=== PATIENT | female | born 1985 | race African-American/Black ===

== ENCOUNTER 2018-10-23 17:04 | Emergency (ER) | payer OTHER ==
[~2018-10-23] VITALS: Ht 157.5 cm; Wt 54.5 kg
[2018-10-23] MEDS ORDERED: ACET500T15 PO (17:16)
[2018-10-23] MEDS ORDERED: NS 1,000 ML IV ONE (17:30)
[2018-10-23] MEDS ORDERED: KETOROLAC 30 MG/ML VIAL (J1885) IV ONE (17:30)
[2018-10-23] MEDS ORDERED: ONDANSETRON 4MG/2ML VIAL (J2405) IV ONE (17:30)
[2018-10-23 17:58] LABS: BASO % 0.2 % (0.0-1.0); EOS # 0.1 10^3/uL (0.0-0.50); EOS % 0.5 % (0.0-3.0); HEMATOCRIT 31.4 % (36.0-47.0); HEMOGLOBIN 9.5 g/dl (12.0-15.5); LYMPH # 2.9 10^3/uL (1.5-4.5); LYMPH % 16.6 % (24.0-44.0); MEAN CORPUSCULAR HEMOGLOBIN 18.4 pg (27.0-33.0); MEAN CORPUSCULAR HGB CONC 30.3 g/dl (32.0-36.5); MONO # 1.8 10^3/uL (0.0-0.8); MONO % 10.3 % (0.0-5.0); NEUTROPHILS # 12.6 10^3/uL (1.8-7.7); NEUTROPHILS % 71.9 % (36.0-66.0); PLATELET COUNT, AUTOMATED 279 10^3/uL (150-450); RED BLOOD COUNT 5.15 10^6/uL (4.00-5.40); WHITE BLOOD COUNT 17.5 10^3/uL (4.0-10.0)
[2018-10-23] MEDS ORDERED: ACETAMINOPHEN 325 MG TAB PO ONE (18:00)
[2018-10-23 18:27] LABS: ALBUMIN 3.5 GM/DL (3.2-5.2); ALT/SGPT 13 U/L (12-78); BILIRUBIN,DIRECT < 0.1 MG/DL (0.0-0.2); BILIRUBIN,TOTAL 0.4 MG/DL (0.2-1.0); BLOOD UREA NITROGEN 13 MG/DL (7-18); CALCIUM LEVEL 8.8 MG/DL (8.5-10.1); CARBON DIOXIDE LEVEL 25 MEQ/L (21-32); CHLORIDE LEVEL 103 MEQ/L (98-107); CREATININE FOR GFR 0.93 MG/DL (0.55-1.30); GLOMERULAR FILTRATION RATE > 60.0 (>60); GLUCOSE, FASTING 90 MG/DL (70-100); LIPASE 91 U/L (73-393); POTASSIUM SERUM 3.7 MEQ/L (3.5-5.1); SODIUM LEVEL 137 MEQ/L (136-145); TOTAL PROTEIN 7.9 GM/DL (6.4-8.2)
[2018-10-23] MEDS ORDERED: ISOVUE-370 76% 100ML VIAL (Q9967) As Ordered ONE (18:34)
--- NOTE | 2018-10-23 18:58 | REP ---
Clinical: Acute lower abdominal pain. Technique: Axial contrast enhanced images from the lung bases to the pubic symphysis using 100 ml Isovue 370 intravenous contrast material with coronal and sagittal re-formations. Findings: Lung bases are clear. Visualized heart and pericardium normal. Liver, spleen, pancreas, gallbladder, bilateral adrenal glands and kidneys are normal. The enteric system is without obstruction or acute inflammatory process. Normal terminal ileum and appendix are identified in the right lower quadrant. Pelvis demonstrates normal bladder and age-appropriate uterus/adnexa. Small amount of free fluid in the posterior cul-de-sac is nonspecific and likely physiologic. No free air. No ascites. No adenopathy. Abdominal aorta and vasculature without aneurysm or dissection. Musculoskeletal structures are intact. Impression: No acute abdominopelvic pathology appreciated. Electronically Signed by Dominic Green MD 10/23/2018 06:49 P
[2018-10-23] MEDS ORDERED: CLINDAMYCIN 300 MG in APPROPRIATE DILUENT 1 EA IV ONE (19:15)
[2018-10-23] MEDS ORDERED: ZOFR4TAB14 PO (19:39)
[2018-10-23] MEDS ORDERED: CLEO300C2 PO (19:39)
[2018-10-23 19:52] VITALS: BP 112/76
== END 2018-10-23 19:58 | disposition home or self-care (01) ==
LOC: M ED 17:04
DX: L03.317 Cellulitis of buttock (principal); Z91.013 Allergy to seafood
CPT/HCPCS: 74177; 80048; 80076; 81001; 81025; 83605; 83690; 85025; 87040; 96361; 96365; 96375; 99284; J1885; J2405; Q9967

== ENCOUNTER 2019-04-04 10:12 | Inpatient (IN) | payer OTHER ==
[~2019-04-04] VITALS: Ht 157.5 cm; Wt 65.2 kg
[~2019-04-04 10:12] MED LIST: ACET500T15 PO; CLEO300C2 PO; FERR325T18; PRENTAB29; VITA500T; ZOFR4TAB14 PO
[2019-04-04] MEDS ORDERED: LR 1,000 ML IV SCH ×3 (10:21→13:00)
[2019-04-04] MEDS ORDERED: LACTATED RINGER'S 1000 ML IV STA (10:21)
[2019-04-04 10:33] VITALS: BP 126/75
[2019-04-04] MEDS ORDERED: OXYTOCIN 30 UNITS IN 0.9% NaCl 500ML IV BAG (J2590) As Ordered ONE (10:44)
[2019-04-04] MEDS ORDERED: BETAMETHASONE SOLUSPAN 6MG/ML INJ 5ML (J0702) IM SCH (10:45)
[2019-04-04] MEDS ORDERED: MAG Sulf (L&D) 4 GM/100 ML 4 GM in APPROPRIATE DILUENT 1 EA IV ONE (10:45)
[2019-04-04] MEDS ORDERED: PENICILLIN G POTASSIUM IV 5 MU in D5W MINI-BAG PLUS 100 ML IV ONE (10:45)
[2019-04-04] MEDS ORDERED: CALCIUM GLUCONATE 1,000 MG in D5W MINI-BAG PLUS 100 ML IV PRN (10:45)
[2019-04-04] MEDS ORDERED: BETAMETHASONE SOLUSPAN 6MG/ML INJ 5ML (J0702) As Ordered ONE (10:51)
[2019-04-04] MEDS ORDERED: MAG Sulf (OBGYN) 20GM/500ML 20,000 MG in APPROPRIATE DILUENT 1 EA IV SCH (10:57)
[2019-04-04 11:04] LABS: HEMATOCRIT 27.4 % (36.0-47.0); HEMOGLOBIN 8.2 g/dl (12.0-15.5); MEAN CORPUSCULAR HEMOGLOBIN 18.3 pg (27.0-33.0); MEAN CORPUSCULAR HGB CONC 29.9 g/dl (32.0-36.5); MEAN CORPUSCULAR VOLUME 61.3 fl (80.0-96.0); PLATELET COUNT, AUTOMATED 231 10^3/uL (150-450); RED BLOOD COUNT 4.47 10^6/uL (4.00-5.40); WHITE BLOOD COUNT 13.3 10^3/uL (4.0-10.0)
[2019-04-04] MEDS ORDERED: MIDAZOLAM INJ 2 MG/2 ML VIAL (J2250) As Ordered ONE (11:10)
[2019-04-04] MEDS ORDERED: fentaNYL 100 MCG/2 ML INJECTION (J3010) As Ordered ONE ×2 (11:17→11:35)
--- NOTE | 2019-04-04 11:24 | NUR ---
[facility] L&D Intrapartum progress note: Late entry for: 1026: Called to bedside as patient arrived from home with uterine ctx q2-3min; crying/breathing through ctx verbalizing a strong urge to push. EGA 23+5 weeks via L/9+5 week US.H/o PTD at unknown EGA- patient unable to recall gestational age; but reports her son is alive an well at present. On arrival to L&D Dr. Bain was notified and requested to come to the bedside for immediate assessment/consult. Dr. Altman was also notified of high suspicion for imminent PTD. No LOF. Scant bloody discharge. Pt reports FM earlier this am. O: A&Ox3; coping appropriately VSS; AF; maternal HR 80-90's. ABD: strong ctx to palp; non-relaxed uterine resting tone to palp SCE: BBOW FHR: 140-150; moderate variability; intermittent assessment due to maternal movement in bed. No audible decelerations. 1041: Dr Altman present at bedside w/ NICU nursing team. 1043: SROM; large amount of clear amniotic fluid; followed by moderate amount of vaginal bleeding. Called Dr. Bain and requested his assessment and consultation. TAUS brought to bs; cephalic vtx noted with + FM. FHR 140-150, intermittent assessment; no audible decelerations. SCE: 3cm/50%/unable to assess for presenting part/OOP. Reported assessment findings to Dr. Bain. Orders placed in anticipation of PTD and potential need for blood transfusion. 1050: Dr. Bain present at bs for assessment; tx care to him at this time. Report given on assessment findings.
[2019-04-04] MEDS ORDERED: OXYTOCIN INJ 10 UNITS/ML VIAL (J2590) As Ordered ONE (11:35)
[2019-04-04] MEDS ORDERED: PROPOFOL 200 MG/20 ML VIAL As Ordered ONE (11:35)
[2019-04-04] MEDS ORDERED: SUCCINYLCHOLINE 100 MG/5 ML SYRINGE (J0330) As Ordered ONE ×2 (11:36→12:30)
[2019-04-04] MEDS ORDERED: CALCIUM CHLORIDE 10% 1 GM/10 ML SYR As Ordered ONE (11:36)
[2019-04-04] MEDS ORDERED: ePHEDrine SULFATE 25 MG/5 ML(5MG/ML) SYRINGE As Ordered ONE (11:44)
--- NOTE | 2019-04-04 12:43 | REP ---
KUB, ONE VIEW: HISTORY: Stat . A small amount of air is present in small and large intestine. There are no air fluid levels or dilated loops of intestine. There is a possible small amount of free air present in the pelvis. There is no radiopaque foreign body. IMPRESSION: 1. Nonspecific bowel gas pattern. 2. There is a possible small amount of free air in the pelvis. Electronically Signed by Juan M Hansen MD 04/04/2019 01:21 P
[2019-04-04] MEDS ORDERED: OXYTOCIN DRIP 30 UNITS in APPROPRIATE DILUENT 1 EA IV SCH (12:51)
[2019-04-04] MEDS ORDERED: ceFAZolin 1GM INJ (J0690 PER 500MG) As Ordered ONE (12:53)
[2019-04-04] MEDS ORDERED: ONDANSETRON 4MG/2ML VIAL (J2405) IV PRN (13:00)
[2019-04-04] MEDS ORDERED: fentaNYL 100 MCG/2 ML INJECTION (J3010) IV PRN (13:00)
[2019-04-04] MEDS ORDERED: ACETAMINOPHEN 500 MG TAB PO PRN (13:00)
[2019-04-04] MEDS ORDERED: PERCOCET 5MG/325MG TAB PO PRN ×2 (13:00)
[2019-04-04] MEDS ORDERED: RHOGAM 300 MCG (1500 IU) INJ (J2790) IM SCH (13:00)
[2019-04-04] MEDS ORDERED: METHYLERGONOVINE MALEATE 0.2 MG/ML VIAL (J2210) IM PRN (13:00)
[2019-04-04] MEDS ORDERED: HYDROMORPHONE HCL 0.5 MG/ 0.5 ML SYRINGE (J1170 PER 1) IV PRN (13:00)
[2019-04-04] MEDS ORDERED: ANUSOL HC CREAM 30GM TOP PRN (13:00)
[2019-04-04] MEDS ORDERED: MOM 30ML SUSPENSION UDC PO PRN (13:00)
[2019-04-04] MEDS ORDERED: MEASLES,MUMPS,RUBELLA VACCINE INJ (MMR-II) (90707) SC SCH (13:00)
[2019-04-04] MEDS ORDERED: DOCUSATE SODIUM 100 MG CAP PO PRN (13:00)
[2019-04-04] MEDS ORDERED: IBUPROFEN 800 MG TAB PO PRN (13:00)
[2019-04-04] MEDS ORDERED: PERCOCET 5MG/325MG TAB As Ordered ONE (13:02)
[2019-04-04] MEDS ORDERED: OXYTOCIN INJ 10 UNITS/ML VIAL (J2590) IV ONE (13:45)
[2019-04-04 14:00] VITALS: BP 129/68
[2019-04-04] MEDS ORDERED: PENICILLIN G POTASSIUM IV 2.5 MU in APPROPRIATE DILUENT 1 EA IV SCH (14:45)
[2019-04-04 15:00] VITALS: BP 116/64
[2019-04-04] MEDS: PERCOCET 5MG/325MG TAB PO PRN ×2 (15:22→23:02)
[2019-04-04 16:00] VITALS: BP 118/58
[2019-04-04 18:00] VITALS: BP 113/55
[2019-04-04] MEDS: KETOROLAC 30 MG/ML VIAL (J1885) IV SCH (18:54)
[2019-04-04 20:08] LABS: HEMATOCRIT 15.1 % (36.0-47.0); MEAN CORPUSCULAR HEMOGLOBIN 18.5 pg (27.0-33.0); MEAN CORPUSCULAR HGB CONC 30.5 g/dl (32.0-36.5); MEAN CORPUSCULAR VOLUME 60.9 fl (80.0-96.0); PLATELET COUNT, AUTOMATED 175 10^3/uL (150-450); RED BLOOD COUNT 2.48 10^6/uL (4.00-5.40); WHITE BLOOD COUNT 22.4 10^3/uL (4.0-10.0)
[2019-04-04 20:10] LABS: HEMOGLOBIN 4.6 g/dl (12.0-15.5)
--- NOTE | 2019-04-04 22:32 | IPN ---
DATE: 04/04/2019 I was called by the nurse telephone coin box collector while being in the OR. I immediately came upstairs to labor and delivery finding a 33-year-old 2, para 1 who is in active labor at 23 and 5 weeks of gestation with a massive abruptio placenta. The bed was filled with blood, which was clotting, approximately 1100 mL. Her LMP was October 20, 2018. Her EDC by early ultrasound at 9 weeks 5 days was July 27, 2019. The patient has a past history of delivery, delivered a live at 28 weeks, 3 pounds 4 ounces male infant who is presently 13 years of age and apparently did not require NICU involvement. Her history otherwise is unremarkable. She is sickle cell trait. Partner was also negative. She did have a consult at [facility] which reviewed her history and gave a similar history at 2004 at 25-28 weeks of delivery in [place] and she had an abruption there, labor, after a fall and delivered. Infant was 1474 grams which is again 3 pounds 4 ounces which is really not consistent with 25 weeks, however, the baby turned out to be fine. The patient with labor is usually involved with 70-hydroxyprogesterone, but if it was an abruption then there is really no indication for Wild. The patient had declined Wild. Was counseled that if it is truly an abruption then it will not prevent another one. However, she was at risk for a potential recurrent abruption. When evaluating this patient in labor with a blood loss 1100 mL, we found that there was bradycardia, down to 70 beats per minute with no recovery. An IV was running full bore. Oxygen was placed. Blood pressure was 132/72, respirations 16, pulse 91 and temperature is 97.5. The assessment was made that this lady after digital examination was 3 cm with a foot down and a stat section was the only option. She was taken to the operating room. In the meantime neonatology was called, [facility] was called for transport. She was crossmatched for blood and in the operating room she had a general anesthetic with a crash and splash. We did require an x-ray to rule out any foreign bodies that were left in as we did not have a count. In summary, we have a 23 and 5 with a massive abruption, footling breech, bradycardia. We had limited discussion with her that she needed to have an emergency section, signed and witnessed the consent form.
[2019-04-05] MEDS: KETOROLAC 30 MG/ML VIAL (J1885) IV SCH ×2 (05:39)
[2019-04-05 05:57] VITALS: BP 111/68
--- NOTE | 2019-04-05 07:12 | RO ---
DATE OF PROCEDURE: 04/04/2019 PREOPERATIVE DIAGNOSES: Massive abruptio placenta. bradycardia. Prematurity. POSTOPERATIVE DIAGNOSES: Abruptio placenta. bradycardia. Prematurity. Footling breech. FINDINGS: footling breech, abruptio placenta, cord times one around the neck, bradycardia. OPERATION PERFORMED: Stat section, classical. SURGEON: Otto Bain MD SUPERINTENDENT ELECTRIC POWER: Juan M Hardin MD for extraction, retraction and exposure. ANESTHESIA: General. ESTIMATED BLOOD LOSS: At the operative site was 400 mL, predelivery was 1100 mL. OPERATION PROPOSED: Stat section. OPERATION PERFORMED: Stat section, classical. Under general anesthesia, quick prep was done and a crash section was performed after draping and Gaffney catheter in the bladder draining clear urine, and acetaminophen suppository 1300 mg per rectum. The Pfannenstiel incision was made through the skin, the fat, the fascia, opening the peritoneal cavity. The bladder was reflected well down anteriorly. Initially we thought the lower segment was thinned enough in order to get in; however, the upper segment contracted and trapped the fetus. We were able to extract the foot through the lower end, however, we have to do a classical type going vertically for about 2-3 inches and then by breech extraction, grabbing the 2 feet, delivered a live female infant weighing 570 grams, 1 pound 4 ounces, scores were 1, 3 and 5, at one, five and ten minutes respectively. Dr. Altman in attendance for resuscitation. The placenta itself basically fell out confirming the abruption, was sent to pathology under separate cover. The posterior wall initially we thought it was placenta, but it was endometrium which was quite anemic looking and on visualization of the back wall of the uterus we saw a large black and blue spot where the abruption probably occurred. There was no actual hole in the area, but it was significantly large enough to encompass the placenta. The placenta contracted well down under Pitocin. We evaluated the lower segment at the bladder area and we were able to close the classical part of the section with #0 Vicryl on an atraumatic needle using figure-of-8 and good hemostasis was applied. We then went ahead and closed the lower transverse incision. The initial layer was done and then imbricating the second layer. We did get good hemostasis in both areas, both tubes and ovaries were visualized to the fimbriated end and appeared to be normal. We then went ahead and put a piece of Surgicel over the vertical part of the incision and encompassed the low transverse area, after which the uterus was replaced in the abdomen in its anatomically correct position. Reviewing again, there was no active bleeding. The peritoneum was closed with a running stitch of #2-0 Vicryl. The fascia was closed with #0 Vicryl subcu to the skin and spray and Telfa were applied. The patient went to recovery in stable condition. The baby went to intensive-care unit (NICU) and [facility] was called and was within 15 minutes out from the NICU. In summary we have a 23 and 5 week gestation with massive abruption, footling breech, delivered by stat section, classical.
--- NOTE | 2019-04-05 07:16 | IPN ---
DATE: 04/05/2019 day #1, postoperative day #1. This lady is a 33-year-old, 2, now para 2, who had a stat section, classical in nature, for a live female , 1 pound 4 ounces or 570 grams, Apgars of 1, 3 and 5 minutes. On her first day, we discussed phlebitis, cystitis, mastitis, endometritis, cellulitis; diet, exercise and pain management; perineal, breast and wound care. Presently, her blood pressure is 111/68, respirations are 18, pulse 73, and temperature 98.6. Her admitting hemoglobin was 8.2, hematocrit 27.4 and platelets were 231. She had a blood loss of almost 2000 mL and therefore her 8-hour hemoglobin was 4.6, hematocrit 15.1 and platelets were 175. She was transfused 2 units of packed cells. We are awaiting her post transfusion hemoglobin/hematocrit. The rest examination is unremarkable. Normocephalic, atraumatic. Neck full range of motion. Pupils equal and reactive to light. Distal pulses symmetric. No evidence of deep vein thrombosis (DVT), pulmonary embolus (PE) or superficial phlebitis. Chest is clear bilaterally bases. No wheezes or rhonchi. No costovertebral angle (CVA) tenderness. Abdomen: Soft uterus two below. Lochia is moderate. Four quadrant bowel sounds are noted. Incision is clean and dry. She has no rashes, lesions or pruritus. No arthralgia or myalgia. No complaint of chest pain. No shortness of breath. We discussed plans for discharge to go to [place], which will happen tomorrow, after she is stabilized today. The baby is doing well in [place]. Apparently has just low calcium and high potassium, is on a vent, but otherwise is doing well on its own. We discussed breast-feeding. My plan is to give her a breast pump in order for her to take it when she goes home and we will find out if there are resources for her to find short-term accommodation while she is at [place]. The baby probably will be there about 3 months. Mother is encouraged about the outcome.
[2019-04-05 07:37] LABS: HEMATOCRIT 22.1 % (36.0-47.0); MEAN CORPUSCULAR HEMOGLOBIN 21.2 pg (27.0-33.0); MEAN CORPUSCULAR HGB CONC 31.7 g/dl (32.0-36.5); PLATELET COUNT, AUTOMATED 148 10^3/uL (150-450); WHITE BLOOD COUNT 21.8 10^3/uL (4.0-10.0)
[2019-04-05] MEDS ORDERED: PRENATAL VITAMINS CHEWABLE TABLET PO SCH (09:00)
[2019-04-05 09:58] VITALS: BP 125/60
[2019-04-05 14:00] VITALS: BP 108/55
[2019-04-05] MEDS: IBUPROFEN 800 MG TAB PO SCH ×2 (15:00→21:11)
[2019-04-05 17:30] VITALS: BP 123/83
[2019-04-05 19:25] LABS: HEMATOCRIT 37.4 % (36.0-47.0); HEMOGLOBIN 12.2 g/dl (12.0-15.5); MEAN CORPUSCULAR HEMOGLOBIN 24.8 pg (27.0-33.0); MEAN CORPUSCULAR HGB CONC 32.6 g/dl (32.0-36.5); MEAN CORPUSCULAR VOLUME 76.2 fl (80.0-96.0); PLATELET COUNT, AUTOMATED 167 10^3/uL (150-450); RED BLOOD COUNT 4.91 10^6/uL (4.00-5.40); WHITE BLOOD COUNT 20.9 10^3/uL (4.0-10.0)
[2019-04-05] MEDS: PERCOCET 5MG/325MG TAB PO PRN (19:28)
[2019-04-05 21:00] VITALS: BP 116/58
--- NOTE | 2019-04-05 21:21 | IPNPDOC ---
Text Note Date of Service The patient was seen on 04/05/19. NOTE POD1 PLTCS, evening note Called by RN, pt received word that baby is not doing well in [place]. They request she come immediately. States feeling well, pain controlled with p rescribed meds. No heavy VB. Lochia slowing. Ambulatory. Tolerating PO without issues. UO adequate. Now s/p 4 units PRBC's, ordered by Dr Bain. VSSAF NAD A&O RRR CTAB LE no C/C/E Ut at U-2, [employer] CDI CBC 1900 HCT 37.4, PLT 167 a/p: Doing well. D/C Immediately. Sessions VS,Anabel, I+O VSAnabel I+O Laboratory Tests 04/05/19 07:23 Red Blood Count 3.30 L, Mean Corpuscular Volume 67.0 L, Mean Corpuscular Hemoglobin 21.2 L, Mean Corpuscular Hemoglobin Concent 31.7 L, Red Cell Distribution Width 23.8 H 04/05/19 18:56 Red Blood Count 4.91, Mean Corpuscular Volume 76.2 L, Mean Corpuscular Hemoglobin 24.8 L, Mean Corpuscular Hemoglobin Concent 32.6, Red Cell Distribution Width 28.5 H Vital Signs Date Time Temp Pulse Resp B/P (MAP) Pulse Ox O2 Delivery O2 Flow Rate FiO2 04/05/19 19:58 15 04/05/19 17:30 99.0 71 123/83 (96) 99 04/04/19 12:35 3 I&O- Last 24 Hours up to 6 AM 04/05/19 06:00 Intake Total 3750 ml Output Total 3400 ml Balance 350 ml SESSIONS,ALVERTO Pepe MD Apr 05, 2019 21:21
--- NOTE | 2019-04-05 21:25 | DS.PDOC ---
Discharge Summary General Date of Admission Apr 04, 2019 at 10:39 Date of Discharge [id number] Discharge Summary ADMITTING DIAGNOSES: obvious abruption, footling breech DISCHARGE DIAGNOSES: Priary , Classical uterine incision HOSPITAL COURSE: Obvious abruption, footling breech. Stat delivery complicated by need for classical uterine incision. course complicated by need for transfusion, received [address] Bain, d/c HCT 37. DISCHARGE MEDICATIONS: Motrin, Lanolin, Percocet, Colace DISCHARGE INSTRUCTIONS: Nothing in the vagina for 6 weeks. No driving for 2 weeks. No bathing for 4 weeks, shower only. F/U in OBGYN clinic in 1-2 weeks for incision check and routine follow-up in 6-8 weeks. Has a ride to [place] to be with her and baby. Sessions Vital Signs/I&Os Vital Signs Date Time Temp Pulse Resp B/P (MAP) Pulse Ox O2 Delivery O2 Flow Rate FiO2 04/05/19 19:58 15 04/05/19 17:30 99.0 71 123/83 (96) 99 04/04/19 12:35 3 I&O- Last 24 Hours up to 6 AM 04/05/19 06:00 Intake Total 3750 ml Output Total 3400 ml Balance 350 ml Laboratory Data Labs 24H Laboratory Tests 2 04/05/19 07:23: Nucleated Red Blood Cells % (auto) 1.1H 04/05/19 18:56: Nucleated Red Blood Cells % (auto) 2.0H CBC/BMP Laboratory Tests 04/05/19 07:23 Red Blood Count 3.30 L, Mean Corpuscular Volume 67.0 L, Mean Corpuscular Hemoglobin 21.2 L, Mean Corpuscular Hemoglobin Concent 31.7 L, Red Cell Distribution Width 23.8 H 04/05/19 18:56 Red Blood Count 4.91, Mean Corpuscular Volume 76.2 L, Mean Corpuscular Hemoglobin 24.8 L, Mean Corpuscular Hemoglobin Concent 32.6, Red Cell Distribution Width 28.5 H Discharge Medications Miscellaneous Medications [] , (Reported) Allergies Coded Allergies: shellfish derived (Verified Allergy, Intermediate, hives, 04/04/19) SESSIONS,ALVERTO Pepe MD Apr 05, 2019 21:25
[2019-04-05] MEDS ORDERED: PRENCHW PO (21:28)
[2019-04-05] MEDS ORDERED: IBUP80TA PO (21:28)
[2019-04-05] MEDS ORDERED: COLA100C5 PO (21:28)
[2019-04-05] MEDS ORDERED: PERCOCET PO (21:28)
== END 2019-04-05 21:45 | disposition home or self-care (01) | DRG 771 ==
LOC: M LDO 10:12 → M LDI 10:39 → M OBS 13:25
PROVIDERS: ADMIT Obstetrics & Gynecology; ATTEND Obstetrics & Gynecology
PROC: 30233N1 Transfusion of Nonautologous Red Blood Cells into Peripheral Vein, Percutaneous Approach (ICD-10-PCS; 2019-04-04)
PROC: 10D00Z1 Extraction of Products of Conception, Low, Open Approach (ICD-10-PCS; principal; 2019-04-04 11:25)
DX: O76 Abnormality in fetal heart rate and rhythm complicating labor and delivery (principal); O45.8X2 Other premature separation of placenta, second trimester; Z37.0 Single live birth; O32.1XX0 Maternal care for breech presentation, not applicable or unspecified; Z3A.23 23 weeks gestation of pregnancy; Z87.51 Personal history of pre-term labor; D57.3 Sickle-cell trait; O99.02 Anemia complicating childbirth